=== PATIENT | male | born 1980 | race Hispanic/Latino ===

== ENCOUNTER 2019-08-21 15:13 | Emergency (ER) | payer SELFPAY ==
[2019-08-21] MEDS ORDERED: HYDROcodone/Acetaminophen 5/325 mg Tablet ONE (15:37)
[2019-08-21] MEDS ORDERED: Adacel (T-DAP) 0.5 ML SYRINGE ONE (15:37)
[2019-08-21] MEDS ORDERED: diphenhydrAMINE 25 MG CAP ONE (15:51)
== END 2019-08-21 15:55 | disposition home or self-care (01) ==
LOC: BURERS 15:13 → EDBD 15:13 → BURERS 15:55
DX: T63 Toxic effect of contact with venomous animals and plants (principal); M79.645 Pain in left finger(s); R20.0 Anesthesia of skin; Z23 Encounter for immunization
CPT/HCPCS: 90471; 90715; Q0163